=== PATIENT | male | born 1995 | race Two or more races ===

== ENCOUNTER 2019-04-16 00:30 | Emergency (ER) | payer SELFPAY ==
[~2019-04-16] VITALS: Ht 177.8 cm; Wt 77.1 kg
[2019-04-16 00:40] VITALS: BP 136/69
[2019-04-16] MEDS ORDERED: Ipratropium 0.02% Inh Soln 2.5ml UD HHN ONE (01:15)
[2019-04-16] MEDS ORDERED: Albuterol ud Inhalation HHN ONE (01:15)
[2019-04-16] MEDS ORDERED: PROMETHAZINE-C118 M1 ORAL (01:50)
[2019-04-16] MEDS ORDERED: PREDNISONE20 MG ORAL (01:50)
[2019-04-16] MEDS ORDERED: AMOXICILLIN500 MG ORAL (01:50)
[2019-04-16] MEDS ORDERED: ALBUTEROL SULF8.5 GM INH (01:50)
[2019-04-16 02:07] VITALS: BP 136/69
--- NOTE | 2019-04-16 02:56 | Emergency Room Report ---
History of Present Illness General Chief Complaint: Upper Respiratory Illness Source: Patient Present Illness HPI 23-year-old male presents ED for evaluation. States he has been having a cough for the last 3 weeks. cough is dry. Denies fevers or chills. States that he was seen at urgent care 1 week ago. Prescribed azithromycin, Tessalon Perles and inhaler. States symptoms improved somewhat but persist. Denies sick contacts or recent travel. No other aggravating relieving factors. Denies any other associated symptoms Allergies: Coded Allergies: GUAIFENESIN (Verified Allergy, Severe, 04/16/19) Patient History Past Medical History: none Past Surgical History: none Pertinent Family History: none Social History: Denies: smoking, alcohol use, drug use Immunizations: UTD Reviewed Nursing Documentation: PMH: Agreed; PSxH: Agreed Nursing Documentation-PMH Past Medical History: No Stated History Review of Systems All Other Systems: negative except mentioned in HPI Physical Exam Vital Signs Date Time Temp Pulse Resp B/P (MAP) Pulse Ox O2 Delivery O2 Flow Rate FiO2 04/16/19 00:33 98.1 76 16 136/69 (91) 96 Room Air 04/16/19 01:10 21 Sp02 EP Interpretation: reviewed, normal General Appearance: no apparent distress, alert, GCS 15, non-toxic Head: normocephalic, atraumatic Eyes: bilateral eye normal inspection, bilateral eye PERRL ENT: hearing grossly normal, normal pharynx, no angioedema, normal voice Neck: full range of motion, supple/symm/no masses Respiratory: chest non-tender, lungs clear, normal breath sounds, speaking full sentences Cardiovascular #1: regular rate, rhythm, no edema Cardiovascular #2: 2+ carotid (R), 2+ carotid (L), 2+ radial (R), 2+ radial (L) , 2+ dorsalis pedis (R), 2+ dorsalis pedis (L) Gastrointestinal: normal bowel sounds, non tender, soft, non-distended, no guarding, no rebound Rectal: deferred Genitourinary: normal inspection, no CVA tenderness Musculoskeletal: back normal, normal range of motion, gait/station normal, non- tender Neurologic: alert, motor strength/tone normal, oriented x3, sensory intact, responsive, speech normal Psychiatric: judgement/insight normal, memory normal, mood/affect normal, no suicidal/homicidal ideation Reflexes: 3+ bicep (R), 3+ bicep (L), 3+ tricep (R), 3+ tricep (L), 3+ knee (R) , 3+ knee (L) Lymphatic: no adenopathy Medical Decision Making Diagnostic Impression: Primary Impression: Atypical pneumonia ER Course Hospital Course 23-year-old male presents to ED complaining of cough Differential diagnoses include: URI, bronchitis, asthma/COPD, pneumonia Clinical course Patient placed on stretcher. After initial history and physical I ordered prednisone and nebulizer treatment. Upon reassessment patient states cough and symptoms have improved. I discussed findings with patient. Given persistence of symptoms will continue antibiotics. I will provide prescription for inhaler and prednisone and cough medication. Safe for discharge with close outpatient follow-up. I will provide PMD referrals Diagnosis - atypical pneumonia Stable and discharged home with prescriptions for Rx albuterol, prednisone, promethazine/codeine, amoxicillin. Instructed to followup with PMD. Return to ED if symptoms recur or worsen Last Vital Signs Date Time Temp Pulse Resp B/P (MAP) Pulse Ox O2 Delivery O2 Flow Rate FiO2 04/16/19 02:07 98.1 76 18 136/69 99 Room Air 21 Status: improved Disposition: HOME, SELF-CARE Condition: Stable Scripts Amoxicillin* (AMOXIL*) 500 Mg Capsule 500 MG ORAL THREE TIMES A DAY, #21 CAP Prov: Jesus Calderón MD 04/16/19 Codeine/Promethazine Hcl* (PROMETHAZINE-CODEINE SYRUP*) 118 Ml Syrup 5 ML ORAL Q6H PRN for For Cough, #118 ML 0 Refills Prov: Jesus Calderón MD 04/16/19 Prednisone* (PREDNISONE*) 20 Mg Tablet 40 MG ORAL DAILY, #10 TAB Prov: Jesus Calderón MD 04/16/19 Albuterol Sulfate* (ALBUTEROL SULFATE MDI*) 8.5 Gm Hfa.aer.ad 2 PUFF INH Q6H, #1 EA 0 Refills Prov: Jesus Calderón MD 04/16/19 Referrals: NOT CHOSEN IPA/,REFERRING (PCP) Maggie Swann Comp. [facility] Patient Instructions: Community-Acquired Pneumonia, Adult, [id number] Jesus Calderón MD Apr 16, 2019 02:56
== END 2019-04-16 01:55 | disposition home or self-care (01) ==
LOC: EMR 00:55
DX: J18.9 Pneumonia, unspecified organism (principal); Z88.8 Allergy status to other drugs, medicaments and biological substances
CPT/HCPCS: 94640; 94664; 99283; J7512